=== PATIENT | male | born 1970 | race Hispanic/Latino ===

== ENCOUNTER 2019-03-15 15:16 | Emergency (ER) | payer BC ==
[~2019-03-15] VITALS: Ht 177.8 cm; Wt 122.5 kg
[~2019-03-15 15:16] MED LIST: AMLODIPINE BESY10 MG PO; FIORICET PO; GLIPIZIDE ER5 MG PO; HUMULIN N100 UNITS/; LISINOPRIL10 MG PO; METFORMIN HCL500 MG PO; MOBIC7.5 MG/5 M PO; PEPCID20 MG PO; SIMVASTATIN40 MG PO
--- OUTSIDE RECORDS SUMMARY | 2019-03-15 15:19 | XMS REPORT ---
Author Author [facility] Address Unknown Phone Unavailable Care Team Providers Care Budget And Policy Analyst Name Role Phone Ninfa CAVAZOS Unavailable Unavailable Hari BOOTH Unavailable Unavailable Problems This patient has no known problems. Allergies, Adverse Reactions, Alerts This patient has no known allergies or adverse reactions. Medications This patient has no known medications. Results Test Description Test Time Test Comments Text Results Atomic Results Result Comments RIBS UNILAT W/CXR 2019-02-04 17:36:00 [place] [address] Patient Name: RENÉE LOUIS MR #: [id number] : 1970 Age/Sex: 48/M Req #: [id number] Adm Physician: Ordered by: COURT CAVAZOS MD Report #: [id number] Location: [facility] Room/Bed: Procedure: [id number] DX/RIBS UNILAT W/CXR Exam Date: 02/04/19 Exam Time: 1721 REPORT STATUS: Signed A single frontal view of the chest and 6 additional views of the left ribs HISTORY: Fell on left side, difficulty breathing COMPARISON: None available. DISCUSSION: Portable technique, limits sensitivity of the exam. Soft tissue attenuation partially limits sensitivity of the exam. Tubes/Lines: None Lungs and pleura: The lungs are well inflated. No evidence of a consolidative pneumonia or pulmonary alveolar edema. No definite pleural effusion or pneumothorax is identified. Heart and mediastinum: The cardiomediastinal silhouette appear(s) unremarkable. Bones and soft tissues: No acute displaced fracture. IMPRESSION: No acute radiographic abnormality. Signed by: Dr. Rahul Polanco D.O., M.M.M. on 02/04/2019 5:41 PM Dictated By: RAHUL POLANCO DO 40 Transcribed By: DEZ on 02/04/191740 COPY TO: COURT CAVAZOS MD MRI BRAIN WO [place] [address] Patient Name: RENÉE LOUIS MR #: [id number] : 1970 Age/Sex: 46/M Req #: [id number] Adm Physician: Ordered by: COURT CAVAZOS MD Report #: [id number] Location: MRI Room/Bed: Procedure: [id number] MRI/MRI BRAIN WO Exam Date: 02/04/17 Exam Time: 1000 REPORT STATUS: Signed Exam: Brain MRI without IV contrast History: Migraine Comparison studies: Head CT 01/13/2017 Technique: Sagittal T2; axial DWI, FLAIR, T2*GRE, T1, Coronal T2 FLAIR. Intravenous contrast: None Findings: Scalp: Normal in signal . No masses . Bone marrow: Normal in signal intensity. Brain sulci: Appropriate for age. Ventricles: Normal in size. No hydrocephalus. Extra axial spaces: No mass, no fluid collection. Parenchyma: No abnormal signal intensities. No masses, hemorrhage, or ischemic insults. Suprasellar region: No abnormalities. Craniocervical junction: Patent foramen magnum. No Chiari malformation. Vessels: Normal flow-voids in the arteries and sinuses. Incidental findings: Mild nonspecific inflammatory mucosal thickening and small retention cyst in the right maxillary sinus. I MPRESSION: 1. No intracranial abnormalities. 2. No abnormalities in the carmen. Hypodensity in the carmen as described on the previous head CT was artifactual. Signed by: Dr. Lita Hurd M.D. on 02/04/2017 10:47 AM Dictated By: LITA HURD MD 46 Transcribed By: DEZ on 02/04/171046 COPY TO: COURT CAVAZOS MD CT BRAIN WO [place] [address] Patient Name: RENÉE LOUIS MR #: [id number] : 1970 Age/Sex: 46/M Req #: [id number] Adm Physician: Ordered by: DIANA BOOTH MD Report #: [id number] Location: ER Room/Bed: Procedure: [id number] CT/CT BRAIN WO Exam Date: Exam Time: REPORT STATUS: Signed EXAMINATION: Head CT without contrast. HISTORY:Migraine type headache, nausea and dizziness. COMPARISON:None. TECHNIQUE: Multidetector axial images were obtained from the foramen magnum to the vertex without contrast. The images were reconstructed using brain and bone algorithms. Thin section brain images were reformatted into coronal and sagittal planes. Intravenous contrast: None IMAGE QUALITY: Acceptable. FINDINGS: Skull/scalp: No abnormality. Parenchyma: Questionable focal hypodensity in the left paramedian aspect of the carmen (image 5, series 2) may either represent an artifact or an age indeterminate lacunar infarct. No acute hemorrhage, mass or acute major vascular territorial infarct. Arteries: No density suggestive of thrombosis. Dural sinuses: No abnormal density suggestive of thrombosis. Ventricles: No hydrocephalus or displacement. Extra- axial spaces: No abnormal density. Brain volume: Normal for age. Craniocervical junction: No mass, Chiari malformation, or basilar invagination. Sella: No mass. Paranasal/mastoid sinuses: Imaged portions unremarkable. IMPRESSION: No acute intracranial abnormality, particularly no acute hemorrhage, mass or acute major vascular territorial infarct. Age indeterminate lacunar infarct vs an artifact in the carmen as detailed above. Signed by: Dr. Thuy Segovia M.D. on 01/13/2017 10:20 PM Dictated By: THUY SEGVOIA MD 19 Transcribed By: DEZ on 01/13/172219 COPY TO: DIANA BOOTH MD ANKLE 3 + VIEWS RIGHT [place] [address] Patient Name: RENÉE LOUIS MR #: [id number] : 1970 Age/Sex: 46/M Req #: [id number] Adm Physician: Ordered by: ADELINE SEGURA [employer] SUPERVISOR Report #: [id number] Location: ER Room/Bed: Procedure: [id number] DX/ANKLE 3 + VIEWS RIGHT Exam Date: 01/02/17 Exam Time: 2049 REPORT STATUS: Signed ANKLE 3 + VIEWS RIGHT LOWER LEG RIGHT HISTORY: 46-year-old complaining of pain status post trauma COMPARISON: None FINDINGS: Bones: No displaced fracture. Osseous alignment is within normal limits. Joints: The joint spaces are well-maintained. Soft tissues: The soft tissues appear unremarkable. IMPRESSION: No acute radiographic abnormality. Signed by: Dr. Devyn España M.D. on 01/02/2017 10:05 PM Dictated By: DEVYN DELGADO MD 04 Transcribed By: DEZ on 01/02/172204 COPY TO: ADELINE SEGURA NP LOWER LEG RIGHT [place] [address] Patient Name: RENÉE LOUIS MR #: [id number] : 1970 Age/Sex: 46/M Req #: [id number] Adm Physician: Ordered by: ADELINE SEGURA NP Report #: [id number] Location: ER Room/Bed: Procedure: [id number] DX/LOWER LEG RIGHT Exam Date: 01/02/17 Exam Time: 2049 REPORT STATUS: Signed ANKLE 3 + VIEWS RIGHT LOWER LEG RIGHT HISTORY: 46-year-old complaining of pain status post trauma COMPARISON: None FINDINGS: Bones: No displaced fracture. Osseous alignment is within normal limits. Joints: The joint spaces are well-maintained. Soft tissues: The soft tissues appear unremarkable.
[2019-03-15] MEDS ORDERED: SODIUM CHLORIDE 0.9% 1000ML 1,000 ML IV STA (16:03)
[2019-03-15 16:14] LABS: BASOPHILS % 0.4 % (0.0-1.0); EOSINOPHILS # (AUTO) 0.2 (0.0-0.4); EOSINOPHILS % 2.5 % (0.0-6.0); HEMATOCRIT 43.5 % (38.2-49.6); HEMOGLOBIN 15.5 g/dL (14.0-18.0); LYMPHOCYTES # (AUTO) 3.1 (1.0-3.2); LYMPHOCYTES % 38.1 % (18.0-39.1); MEAN CORPUSCULAR HEMOGLOBIN 30.7 pg (28-32); MEAN CORPUSCULAR HGB CONC 35.6 g/dL (31-35); MEAN CORPUSCULAR VOLUME 86.1 fL (81-99); MONOCYTES # (AUTO) 0.5 (0.2-0.8); MONOCYTES % 5.5 % (4.4-11.3); NEUTROPHILS # (AUTO) 4.4 (2.1-6.9); PLATELET COUNT 245 x10e3/uL (140-360); RED BLOOD COUNT 5.05 x10e6/uL (4.3-5.7); RED CELL DISTRIBUTION WIDTH 12.3 % (11.7-14.4)
[2019-03-15 16:19] LABS: CLARITY,URINE HAZY (CLEAR); COLOR,URINE YELLOW (YELLOW); LEUKOCYTE ESTERASE ,URINE NEGATIVE (NEGATIVE); NITRITE,URINE NEGATIVE (NEGATIVE); PROTEIN,URINE DIPSTICK NEGATIVE (NEGATIVE)
[2019-03-15 16:20] LABS: BILIRUBIN,URINE NEGATIVE (NEGATIVE); KETONES,URINE NEGATIVE (NEGATIVE); URINE UROBILINOGEN 0.2 mg/dL (0.2 - 1)
[2019-03-15 16:24] LABS: BACTERIA,URINE FEW /HPF; EPITHELIAL CELLS,URINE FEW /LPF; RBC,URINE 0-5 /HPF (0-5); WBC,URINE (MAN) 0-5 /HPF (0-5)
[2019-03-15 16:30] LABS: ALANINE AMINOTRANSFERASE 36 IU/L (0-55); ALBUMIN 3.8 g/dL (3.5-5.0); ALBUMIN/GLOBULIN RATIO 1.2 (0.8-2.0); ALKALINE PHOSPHATASE 59 IU/L (40-150); AMYLASE 47 U/L (25-125); ANION GAP 12.9 mmol/L (8-16); BLOOD UREA NITROGEN 11 mg/dL (7-26); BUN/CREATININE RATIO 15 (6-25); CALCIUM 9.6 mg/dL (8.4-10.2); CARBON DIOXIDE 23 mmol/L (22-29); CHLORIDE 107 mmol/L (98-107); CREATININE, SERUM 0.74 mg/dL (0.72-1.25); EST GLOMERULAR FILTRATION RATE > 60 ML/MIN (60-); GLUCOSE 164 mg/dL (74-118); LIPASE 18 U/L (8-78); MAGNESIUM 1.9 MG/DL (1.3-2.1); POTASSIUM 3.9 mmol/L (3.5-5.1); SODIUM 139 mmol/L (136-145)
[2019-03-15 17:00] VITALS: BP 142/97
[2019-03-15] MEDS ORDERED: DIAZEPAM 5 MG TAB PO ONE (17:00)
[2019-03-15] MEDS ORDERED: KETOROLAC TROMETHAMINE 30 MG/ML VIAL IV ONE (17:00)
--- NOTE | 2019-03-15 17:00 | Diagnostic Imaging Report ---
Lumbar spine complete CPT code: 36889 Indication: Scoliosis a mild bending down 5 days ago Technique: A.P., lateral and bilateral oblique views of the lumbar spine obtained. Comparison: None. Findings: There are five non rib bearing vertebral bodies. There is minimal levoscoliosis with the apex at L3. No rotational component. The transverse processes are intact. The vertebral body heights are well maintained. There is mild endplate sclerosis. Mild disc space narrowing at L5-S1. There is bilateral facet arthropathy at the lower levels. No pars defects. No abnormalities of the sacroiliac joints. The sacrum is normal. The spinous processes are normally aligned. There is no evidence of subluxation. The bowel gas pattern is unremarkable. IMPRESSION: No compression fracture or subluxation. Mild degenerative changes. Minimal levoscoliosis may be positional or due to spasm. Signed by: Dr. Chloe Pitts MD on 03/15/2019 4:57 PM
[2019-03-15] MEDS ORDERED: DIAZEPAM5 MG PO (17:02)
== END 2019-03-15 17:07 | disposition home or self-care (01) ==
LOC: ER 15:16
DX: S39.012A Strain of muscle, fascia and tendon of lower back, initial encounter (principal); I10 Essential (primary) hypertension; E11.9 Type 2 diabetes mellitus without complications; E78.5 Hyperlipidemia, unspecified
CPT/HCPCS: 36415; 72110; 80053; 81001; 82150; 83690; 83735; 85025; 99284; J1885; J7030

== ENCOUNTER → 2019-04-02 | Outpatient (CLI) | payer BC ==
[~2019-04-02] MED LIST changes: +DIAZEPAM5 MG PO
--- NOTE | 2019-04-02 11:54 | Diagnostic Imaging Report ---
MRI SPINE LUMBAR WO HISTORY: Spondylosis with radiculopathy COMPARISON: Lumbar spine radiographs 03/15/2019 TECHNIQUE: Sagittal T1, sagittal T2, sagittal STIR, axial T2, coronal T2, and axial proton density weighted images of the lumbar spine were obtained without contrast. DISCUSSION: Number of non-rib bearing lumbar vertebral bodies: 5. Alignment: Normal lordosis. No scoliosis. Vertebrae: No fractures, infection or neoplasm. Conus medullaris: Normal, ends at L1. Cauda equina: No masses or arachnoiditis. Posterior paraspinal muscles: Well preserved. No signal abnormalities. Soft tissues: No signal abnormalities. Mild multilevel lumbar disc degeneration is superimposed on a congenitally narrow lumbar spinal canal. T12-L1: Patent canal and foramina. L1-L2: Patent canal and foramina. L2-L3: Mild canal stenosis due to disc bulge and ligamentum flavum thickening. No significant foraminal stenosis. L3-L4: Mild to moderate canal stenosis due to disc bulge and ligamentum flavum thickening. Both lateral recesses are effaced. No significant foraminal stenosis. L4-L5: Mild canal stenosis due to disc bulge and ligamentum flavum thickening. Both lateral recesses are slightly effaced. No significant foraminal stenosis. L5-S1: Mild left foraminal stenosis due to disc bulge and facet arthrosis. No significant canal or right foraminal stenosis. IMPRESSION: 1. Mild multilevel lumbar disc degeneration superimposed on a congenitally narrow lumbar spinal canal. 2. Multilevel congenital/degenerative canal stenoses - mild to moderate at L3-L4; mild at L2-L3 and L4-L5. 3. Mild left L5-S1 degenerative foraminal stenosis. Signed by: Dr. Meng Landa M.D. on 04/02/2019 11:50 AM
== END ==
LOC: MRI 08:03
PROVIDERS: ATTEND Internal Medicine
DX: M47.27 Other spondylosis with radiculopathy, lumbosacral region (principal)
CPT/HCPCS: 72148